=== PATIENT | male | born 1995 | race Caucasian/White ===

== ENCOUNTER 2019-10-04 04:46 | Emergency (ER) | payer SELFPAY ==
[2019-10-04] MEDS: Tetracaine HCl/PF 0.5% 4 ML Bottle ONE (05:12)
--- NOTE | 2019-10-04 05:22 | EDM.PDOC ---
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 [place] Pt states eyes burn and itch Lids are swollen Did take Benadryl No new exposures Onset: Today, Sudden Duration: Getting Worse Treatments DIESEL TRACTOR OPERATOR: Reports: Other (see below) Other Treatments DIESEL TRACTOR OPERATOR: Benadryl and warm washcloth Bilateral Eye Pain Score (Numeric/FACES): 10 - Related Data Allergies Allergy/AdvReac Type Severity Reaction Status Date / Time No Known Allergies Allergy Verified 07/27/14 16:26 Home Meds: Home Meds raNITIdine HCl [Zantac] 150 mg PO ASDIRECTED PRN 10/04/19 [History] Past Medical History - Past Health History Medical/Surgical History: Denies Medical/Surgical History Musculoskeletal History: Reports: Fracture Social & Family History - Tobacco Use Smoking Status *Q: Current Every Day Smoker Years of Tobacco use: 10 Packs/Tins Daily: 0.5 - Caffeine Use Caffeine Use: Reports: Energy Drinks, Soda - Alcohol Use Days Per Week of Alcohol Use: 2 Number of Drinks Per Day: 10 Total Drinks Per Week: 20 - Recreational Drug Use Recreational Drug Use: No ED ROS GENERAL - Review of Systems Review Of Systems: See Below HEENT: Reports: Eye Discharge, Eye Pain ED EXAM GENERAL W FULL EYE - Physical Exam Exam: See Below Eye Exam: Bilateral Eye: Conjunctival Injection, EOMI, Periorbital Changes ( Periorbital edema No erythema), PERRL Eyelids: Bilateral: Edema Conjunctiva & Sclera: Bilateral: Conjunctival Edema Cornea Exam: Bilateral: Normal Appearance Extraocular Movements: Bilateral: Intact Pupillary Size: Bilateral: 4 mm Pupillary Reaction: Bilateral: Brisk Course - Vital Signs Last Recorded V/S: Last Vital Signs Temp 97.8 F 10/04/19 04:47 Pulse 86 10/04/19 04:47 Resp 14 10/04/19 04:47 BP 132/80 10/04/19 04:47 Pulse Ox 99 10/04/19 04:47 - Orders/Labs/Meds Meds: Medications Discontinued Medications Generic Name Dose Route Start Last Admin Trade Name Freq PRN Reason Stop Dose Admin Tetracaine HCl Confirm 10/04/19 05:10 10/04/19 05:12 Tetracaine 0.5% Steri-Unit Neha Administered 10/04/19 05:11 2 drop Dose Administration 4 ml .ROUTE .STK-MED ONE - Re-Assessments/Exams Free Text/Narrative Re-Assessment/Exam: 10/04/19 05:19 Pt given Trimethoprim eye drops in ER To follow up with eye provider this AM Departure - Departure Time of Disposition: 05:30 Disposition: Home, Self-Care 01 Clinical Impression: Conjunctivitis Qualifiers: Conjunctivitis type: unspecified Laterality: bilateral Qualified Code(s): H10.9 - Unspecified conjunctivitis - Discharge Information *PRESCRIPTION DRUG MONITORING PROGRAM REVIEWED*: Not Applicable *COPY OF PRESCRIPTION DRUG MONITORING REPORT IN PATIENT ROSELYN: Not Applicable Instructions: How to Use Eye Drops and Eye Ointments Additional Instructions: Eye drops 2 drops every 6 hours to both eyes Follow up with eye provider this AM Sepsis Event Note - Evaluation Sepsis Screening Result: No Definite Risk - Focused Exam Vital Signs: Vital Signs Temp Pulse Resp BP Pulse Ox 10/04/19 04:47 97.8 F 86 14 132/80 99 Date Exam was Performed: 10/04/19 Time Exam was Performed: 05:16
== END 2019-10-04 05:30 | disposition home or self-care (01) ==
LOC: LL.ED 04:46
DX: H10.9 Unspecified conjunctivitis (principal); F17.210 Nicotine dependence, cigarettes, uncomplicated
CPT/HCPCS: 99283